=== PATIENT | female | born 1960 | race Native Hawaiian/Other Pacific Islander ===

== ENCOUNTER → 2017-06-28 | Outpatient (CLI) | payer OTHER | LOC: CIMAGING 10:10 | PROVIDERS: ATTEND Family Medicine | DX: Z12.31 Encounter for screening mammogram for malignant neoplasm of breast (principal) | CPT/HCPCS: G0202 ==

== ENCOUNTER → 2018-01-29 | Outpatient (CLI) | payer OTHER | LOC: CIMAGING 12:48 | PROVIDERS: ATTEND Family Medicine | DX: J98.4 Other disorders of lung (principal) | CPT/HCPCS: 71046-PO ==